=== PATIENT | female | born 1935 | race Caucasian/White ===

== ENCOUNTER → 2017-09-04 | Outpatient (REF) | LOC: ZLAB.WCH 18:02 | DX: Z01.89 Encounter for other specified special examinations (principal) ==

== ENCOUNTER → 2018-03-07 | Outpatient (REF) | LOC: ZLAB.WCH 16:11 | DX: Z01.89 Encounter for other specified special examinations (principal) ==

== ENCOUNTER → 2018-03-08 | Outpatient (REF) | LOC: ZLAB.WCH 16:04 | DX: Z01.89 Encounter for other specified special examinations (principal) ==

== ENCOUNTER → 2018-12-04 | Outpatient (REF) | LOC: ZLAB.WCH 16:06 | DX: Z01.89 Encounter for other specified special examinations (principal) ==

== ENCOUNTER → 2018-12-12 | Outpatient (REF) | LOC: ZLAB.WCH 17:23 | DX: Z01.89 Encounter for other specified special examinations (principal) ==

== ENCOUNTER 2020-11-25 14:54 | Observation (INO) | payer MEDICARE, OTHER ==
[~2020-11-25 14:54] MED LIST: ASPIRIN E.C. 8181 MG PO; DITROPAN 5MG TAB5 MG PO; LIPITOR20 MG PO; NITROSTAT0.4 MG/TAB SL; PREDNISONE10 MG PO
--- NOTE | 2020-11-25 15:00 | NUR ---
Patient arrived via EMS. Alert and oriented x 3. Denies pain at this time. Oriented to room. Dr. Ayala in to see patient. No further needs at this time.
[2020-11-25 17:35] VITALS: BP 165/66; PULSE 65; TEMP 98.3
--- NOTE | 2020-11-25 18:47 | NUR ---
Patient out by wheelchair. Educated patient on when to call provider and scheduling follow up appointments. INT to RAC discontinued, catheter tip intact. No further needs at this time.
== END 2020-11-25 18:47 | disposition home or self-care (01) ==
LOC: MEDICAL 14:54
PROVIDERS: ADMIT Hospitalist
DX: R07.89 Other chest pain (principal); N32.81 Overactive bladder; W01.0XXA Fall on same level from slipping, tripping and stumbling without subsequent striking against object, initial encounter; E78.5 Hyperlipidemia, unspecified
CPT/HCPCS: G0378

== ENCOUNTER 2021-09-07 16:55 | Inpatient (IN) | payer MEDICARE, OTHER ==
[~2021-09-07] VITALS: Ht 165.1 cm; Wt 53.3 kg
[2021-09-07 20:18] LABS: BASO # 0.1 K/mm3 (0.0-0.2); BASO % 0.7 % (0.0-2.0); EOS % 0.2 % (0.0-4.0); GRAN # 8.9 K/mm3 (1.4-6.5); GRAN % 86.4 % (42.2-75.2); HEMATOCRIT 40.6 % (37.0-47.0); HEMOGLOBIN 13.4 g/dl (12.5-16.0); LYMPH # 0.7 K/mm3 (1.2-3.4); MEAN CELL VOLUME 86 fl (80.0-100.0); MEAN CORPUSCULAR HEMOGLOBIN 28 pg (27-31); MEAN CORPUSCULAR HGB CONC 33 g/dl (33.0-37.0); MEAN PLATELET VOLUME 10.9 fl (7.4-10.4); MONO # 0.6 K/mm3 (0.1-0.6); MONO % 5.3 % (1.7-9.3); PLATELET COUNT 190 K/mm3 (130-400); RED BLOOD COUNT 4.74 M/mm3 (4.10-5.30); REDCELL DISTRIBUTION WIDTH-CV 13.2 % (11.5-14.5)
[2021-09-07 20:24] LABS: PROTHROMBIN TIME 10.9 SECONDS (9.7-12.8)
[2021-09-07 21:13] LABS: ALBUMIN 3.8 gm/dL (3.4-4.8); BILIRUBIN,TOTAL 0.8 mg/dL (0.2-1.2); CALCIUM 8.7 mg/dL (8.4-10.2); CREATININE, serum 0.82 mg/dL (0.57-1.11); POTASSIUM 3.9 mmol/L (3.5-4.5); TOTAL PROTEIN 6.3 gm/dL (6.2-8.1)
[2021-09-07 22:13] VITALS: BP 176/70; PULSE 90; TEMP 98
--- NOTE | 2021-09-07 22:18 | NUR ---
PT ADMITTED TO ROOM 343 PER BED. PT FORGETFUL AND YELLING OUT WHEN MOVED. ORIENTED TO PALCE AND TIME AND SELF. CALL LIGHT IN REACH. NPO STATUS. BED ALARM SET. RLE ROTATED AND SHORTEN ALITTLE. SCD'S PLACED ON LEGS.
--- NOTE | 2021-09-07 22:35 | NUR ---
UA OBTAINED AND SENT TO LAB
[2021-09-07 22:48] LABS: COLLECTION METHOD IN
[2021-09-07 23:05] LABS: MUCOUS Present (NOT PRESENT); PH 5 (5-8); SQUAMOUS EPITHELIAL None Seen /hpf (0-10); URINE APPEARANCE Hazy (CLEAR/HAZY); URINE BACTERIA Rare /hpf (NONE SEEN); URINE BILIRUBIN Negative (NEGATIVE); URINE BLOOD Negative (NEGATIVE); URINE COLOR Yellow (YELLOW); URINE GLUCOSE Negative (NEGATIVE); URINE KETONE 1+ (NEGATIVE); URINE LEUKOCYTE ESTERASE 1+ (NEGATIVE); URINE NITRATE Positive (NEGATIVE); URINE PROTEIN(semi-quant) 1+ (NEGATIVE); URINE RBC 20-50 /hpf (0-2)
--- NOTE | 2021-09-07 23:32 | NUR ---
UA RESULTS CALLED TO [facility]. NEW ORDERS.
[2021-09-08] VITALS (15 sets, daily range): BP systolic 133–176; BP diastolic 46–72; PULSE 73–102; TEMP 97.3–99
--- NOTE | 2021-09-08 00:09 | NUR ---
ROCEPHIN STARTED FOR UTI.
--- NOTE | 2021-09-08 04:03 | NUR ---
PT AWAKE AND CONFUSED. C/O RT HIP PAIN. SEE MAR FOR DILAUDID GIVEN.
--- NOTE | 2021-09-08 08:32 | NUR ---
Echo has been completed, awaiting pt to be cleared. Pt does state that she is having pain, but keeps grabbing her left leg. Right leg is externally rotated. PRN pain medication given. Not moving pt to assess back/bottom due to pt condition/pain level. Pt aware that she cannot have anything to eat or drink. Did give her some mouth swabs as she states she is having a hard time swallowing due to her throat being dry. Call light within reach, will continue to monitor
--- NOTE | 2021-09-08 09:46 | NUR ---
winery worker met with patient and patient's at bedside to discuss discharge plan. Patient lives at home with her Naveed ([phone]) and two grandchildren. Patient is independent with her ADL's and she does not utilize any DME to assist with mobility. Patient has no oxygen needs at home. PCP is Dr. Burciaga and she utilizes [facility] for medications with no cost difficulty. Patient's reports that they do have a DPOA-HC established listing their two son's as the agents. Spoke with patient and patient's about SNF need post surgery. Patient's verbalizes his first choice would be [facility] and the second [facility]. Referrals sent to both. [facility]
--- NOTE | 2021-09-08 10:07 | NUR ---
Called cardiology to get echo read so that pt can be cleared for surgery. Pt having increasing copmlaints of pain. Pain medication schedule/dose changed. Hospitalist has rounded, awaiting echo to be read
--- NOTE | 2021-09-08 10:28 | NUR ---
Initial visit; Patient thanked Retail Marketing Manager for looking in on her and offering prayer and God's blessings. Retail Marketing Manager will keep Mary in her prayers and will follow up while she is hospitalized.
--- NOTE | 2021-09-08 10:42 | NUR ---
Pt repositioned on to right side slightly using a pillow. Pt having complaints that her bottom is starting to hurt. Pt reported that this does feel a little better
--- NOTE | 2021-09-08 13:52 | NUR ---
Pt off the floor for surgery
--- NOTE | 2021-09-08 16:30 | NUR ---
Pt back recently from surgery. She is awake and alert. was at bedside when she arrived back from surgery. Pt does have bearhugger in place as she was shivering. VSS
--- NOTE | 2021-09-08 16:45 | NUR ---
Pt has been sleeping after getting settled from getting back from surgery. She does wake easily when spoken too, but is obviously tired. Pt states that her leg does not feel too bad right now. Francisco HEADLEY. SCDs on bilaterally and ice pack in place.
--- NOTE | 2021-09-08 19:22 | NUR ---
PT HAVING RT HIP PAIN. SEE MAR FOR DILAUDID GIVEN. REPOSITIONED FOR COMFORT. ICE PACK TO RT HIP. SCD'S ON.
--- NOTE | 2021-09-08 20:16 | NUR ---
pt resting now. no evidence of pain o2 sat 98% on 02 1nc
--- NOTE | 2021-09-08 21:37 | NUR ---
PT SLEEPING AT THIS TIME. NO DISTRESS. PAIN UNDER CONTROL.
[2021-09-09 03:09] VITALS: BP 110/49; PULSE 92; TEMP 98.2
[2021-09-09 06:25] LABS: BASO % 0.4 % (0.0-2.0); EOS # 0.1 K/mm3 (0.0-0.7); EOS % 1.1 % (0.0-4.0); GRAN % 73.1 % (42.2-75.2); LYMPH # 1.2 K/mm3 (1.2-3.4); LYMPH % 14.4 % (20.0-51.0); MEAN CELL VOLUME 90 fl (80.0-100.0); MEAN CORPUSCULAR HGB CONC 32 g/dl (33.0-37.0); MEAN PLATELET VOLUME 11.4 fl (7.4-10.4); MONO # 0.9 K/mm3 (0.1-0.6); MONO % 10.6 % (1.7-9.3); PLATELET COUNT 162 K/mm3 (130-400); RED BLOOD COUNT 3.54 M/mm3 (4.10-5.30); REDCELL DISTRIBUTION WIDTH-CV 13.7 % (11.5-14.5)
[2021-09-09 06:34] LABS: HEMATOCRIT 31.8 % (37.0-47.0); HEMOGLOBIN 10.2 g/dl (12.5-16.0); MEAN CORPUSCULAR HEMOGLOBIN 29 pg (27-31)
[2021-09-09 06:38] LABS: CALCIUM 8.5 mg/dL (8.4-10.2); CREATININE, serum 0.74 mg/dL (0.57-1.11); POTASSIUM 3.9 mmol/L (3.5-4.5)
[2021-09-09 07:44] VITALS: BP 127/67; PULSE 99; TEMP 98.1
--- NOTE | 2021-09-09 08:33 | NUR ---
Pt resting in bed and does have complaints of pain. She just isn't able to get comfortable. Pain medication given. Pt is confused, but is aware that she is and it very bothered by it. Pt keeps asking what is going on and why doesn't she know where she is and why she is here. Kept re-orienting pt. Assisted with setting up her tray for breakfast and encouraged her to at least eat her eggs. From addmission yesterday, it does not appear that the pt has a very nutritious diet at home.
--- NOTE | 2021-09-09 11:14 | NUR ---
Pt is very anxious. She is upset that she can't remember why she is here and what is going on. She did talk to her which helped for a short time, but she is back to being very anxious and crying. Pt is currently sitting up in the chair. Notified ABBY Kenney
[2021-09-09 11:53] VITALS: BP 123/66; PULSE 100; TEMP 99.1
--- NOTE | 2021-09-09 13:24 | NUR ---
Assisted pt back to bed as she was stating her bottom was bothering her. pt was a 2 assist using a walker. She did refuse anything for lunch. Gave her an ensure
[2021-09-09 15:31] VITALS: BP 118/49; PULSE 103; TEMP 100
--- NOTE | 2021-09-09 18:17 | NUR ---
Pt is very anxious when she does not have family with her. She continues to make confused statements and when corrected she gets very upset. Pt has poor PO intake. Ensure given
[2021-09-09 20:41] VITALS: BP 118/48; PULSE 99; TEMP 97.7
[2021-09-10 00:44] VITALS: BP 102/42; PULSE 97; TEMP 98.2
[2021-09-10 04:35] VITALS: BP 133/60; PULSE 91; TEMP 97.5
--- NOTE | 2021-09-10 05:18 | NUR ---
PT REMAIN CONFUSED THROUGHT THE NIGHT KEPT CALLING SEVERAL TIMES AT [facility]. PT REORIENTED. PAIN MEDICATION ADMINSTERED PER ORDERS
[2021-09-10 07:50] LABS: CALCIUM 8.8 mg/dL (8.4-10.2); CREATININE, serum 0.72 mg/dL (0.57-1.11); POTASSIUM 3.4 mmol/L (3.5-4.5)
[2021-09-10 07:55] LABS: BASO % 0.5 % (0.0-2.0); EOS # 0.2 K/mm3 (0.0-0.7); EOS % 1.9 % (0.0-4.0); GRAN # 5.8 K/mm3 (1.4-6.5); GRAN % 74.3 % (42.2-75.2); LYMPH % 12.8 % (20.0-51.0); MEAN CELL VOLUME 86 fl (80.0-100.0); MEAN CORPUSCULAR HGB CONC 33 g/dl (33.0-37.0); MEAN PLATELET VOLUME 11.4 fl (7.4-10.4); MONO # 0.8 K/mm3 (0.1-0.6); PLATELET COUNT 150 K/mm3 (130-400); RED BLOOD COUNT 3.28 M/mm3 (4.10-5.30); REDCELL DISTRIBUTION WIDTH-CV 13.3 % (11.5-14.5)
[2021-09-10 07:57] LABS: HEMATOCRIT 28.2 % (37.0-47.0); HEMOGLOBIN 9.4 g/dl (12.5-16.0); MEAN CORPUSCULAR HEMOGLOBIN 29 pg (27-31)
--- NOTE | 2021-09-10 08:30 | NUR ---
Pt very anxious and scared. She has to be reoriented multiple times and keeps asking why this is happening to her. Pt is aware that she is confused and keeps saying that she feels like she is going crazy. Assisted pt to the commode as she thought she needed to have a bowel movement. She was unsuccessful. Assisted her to the recliner for breakfast.
[2021-09-10 08:36] VITALS: BP 112/61; PULSE 67; TEMP 98.2
--- NOTE | 2021-09-10 11:00 | NUR ---
Pt has gotten up several times to the commode thinking she needed to have a bowel movement. Pt does do well with one assist with walker. Assisted pt back to bed for safety reasons. She keeps trying to get up from recliner. Again have had to reorient pt multiple times. Informed her that her Naveed would be here as soon as the weather cleared up. Pt again went on how she has been trying to tell family that she is going crazy, but states nobody believes her. She stated that she often has to go for walks to clear her head. Passed this information on to Dr Ibanez.
[2021-09-10 12:45] VITALS: BP 105/63; PULSE 96; TEMP 97.8
--- NOTE | 2021-09-10 13:00 | NUR ---
Pt is much more calm now as her , Naveed, is here. Hopoer catheter has been removed per order. Pt has poor PO intake, encouraging her to drink ensures so that she gets some protein. Pt in bed with bed alarm on
--- NOTE | 2021-09-10 15:34 | NUR ---
Spa Therapist spoke with Jessica, [facility] Director who advised she may be able to admit tomorrow depending on staffing. SW contacted [facility] and was advised they are full at this time. NESS then followed up with patient and her , Naveed to discuss additional referrals. They would like referrals sent to [facility], [facility], and [facility]. NESS faxed referrals.
[2021-09-10 16:00] VITALS: BP 121/54; PULSE 94; TEMP 97.9
--- NOTE | 2021-09-10 18:49 | NUR ---
Pt has been very upset for the past couple of hours. Someone has had to be with her almost the entire time. She is very upset thinking that her has hired myself to stay with her. She has stated that she has been telling her family that she doesn't feel safe at home and that she is afraid that something bad will happen such as starting a meal on the stove and forgetting about it. She now feels that Naveed, her , has hired myself without telling her. I am able to reorient her for a short time, but then she goes back to being upset and then makes no sense in her conversation. Each time pt was repositioned, calmed and then bed alarm on
[2021-09-10 20:26] VITALS: BP 123/53; PULSE 75; TEMP 98.2
--- NOTE | 2021-09-10 22:56 | NUR ---
PT HAS BEEN VERY CONFUSED. CONTSINUOUSLY TRYING TO GET OUT OF BED UNASSISTED. ORDER FOR HALDOL RECEIVED. HALDOL DID NOT SEEM TO SLOW HER ANXIOUS/RESTLESS BEHAVIOR AT ALL. PT ADMIN. PAIN MEDICATION FOR RLE WHICH DID SEEM TO HELP SOME. PT STILL VERY RESTLESS.
[2021-09-11 00:49] VITALS: BP 138/58; PULSE 95; TEMP 97.6
--- NOTE | 2021-09-11 05:03 | NUR ---
PT HAS GOTTEN APPROXIMATELY 1 HOUR OF SLEEP ALL TOTAL TONIGHT. PT MEDICATED WITH OXYCODONE AND TYLENOL FOR HIP PAIN. SHE IS OCCASIONALLY RESISTANT TO CARE BUT USUALLY IS COMPLIANT. GAIT UNSTEADY.
[2021-09-11 06:27] LABS: HEMATOCRIT 25.8 % (37.0-47.0); HEMOGLOBIN 8.7 g/dl (12.5-16.0); MEAN CELL VOLUME 86 fl (80.0-100.0); MEAN CORPUSCULAR HEMOGLOBIN 29 pg (27-31); MEAN CORPUSCULAR HGB CONC 34 g/dl (33.0-37.0); MEAN PLATELET VOLUME 11.6 fl (7.4-10.4); PLATELET COUNT 161 K/mm3 (130-400); REDCELL DISTRIBUTION WIDTH-CV 13.2 % (11.5-14.5)
[2021-09-11 06:28] LABS: CALCIUM 8.4 mg/dL (8.4-10.2); CREATININE, serum 0.71 mg/dL (0.57-1.11); MAGNESIUM 2.1 mg/dL (1.6-2.6); POTASSIUM 3.7 mmol/L (3.5-4.5)
--- NOTE | 2021-09-11 06:35 | NUR ---
starting to get out of bed, assisted up to bathroom and then back to bed and bedside shift report received from JASON Wu
[2021-09-11 07:41] VITALS: BP 112/48; PULSE 78; TEMP 97.5
--- NOTE | 2021-09-11 08:00 | NUR ---
resting in bed, CUSTOMER SERVICE LEADER in and assisted her with ordering breakfast
--- NOTE | 2021-09-11 08:25 | NUR ---
awake in bed, full assessment completed, see interventions for further info, assisted up to chair for breakfast, MATTRESS RENOVATOR in and assisting with care also, chair alarm on
--- NOTE | 2021-09-11 09:45 | NUR ---
physical therapy in and ambulated patient out to reddy and then back to room and into bed
--- NOTE | 2021-09-11 11:05 | NUR ---
sitting up in bed visiting ricky gonsales who is now at bedside
[2021-09-11 12:15] VITALS: BP 129/58; PULSE 46; TEMP 97.3
--- NOTE | 2021-09-11 12:30 | NUR ---
sat up in bed and had lunch and tolerated well, up to bathroom with assistance
--- NOTE | 2021-09-11 13:06 | NUR ---
Jessica with [facility] advises that they will be able to accept this patient tomorrow due to staffing shortages and changes needing to be made with the patient's medications.
--- NOTE | 2021-09-11 14:00 | NUR ---
up and in recliner, denies needs
[2021-09-11 16:45] VITALS: BP 136/60; PULSE 95; TEMP 97.4
--- NOTE | 2021-09-11 17:17 | NUR ---
sitting up in bed eating supper
--- NOTE | 2021-09-11 18:49 | NUR ---
bedside shift report given to JASON Wu
--- NOTE | 2021-09-11 22:18 | NUR ---
PT EVEN MORE DISORIENTED, ANXIOUS, RESTLESS TONIGHT. FREQUENTLY TRYING TO GET OUT OF BED TO GO FIND HER , GO DOWNSTAIRS, GO OUTSIDE ETC. PT VERY UNSTEADY ON FEET.
[2021-09-11 23:56] VITALS: BP 109/75; PULSE 104; TEMP 98
[2021-09-12 03:45] VITALS: BP 113/74; PULSE 84; TEMP 97.9
--- NOTE | 2021-09-12 04:40 | NUR ---
PT HAS NOT SLEPT ALL NIGHT. FREQUENTLY TRYING TO GET OUT OF BED. TYLENOL FOR PAIN. VERY DISORIENTED. MORE SO THAN THE PREVIOUS ADMINISTRATION MANAGER.
[2021-09-12 06:46] LABS: MEAN CELL VOLUME 88 fl (80.0-100.0); MEAN CORPUSCULAR HGB CONC 32 g/dl (33.0-37.0); MEAN PLATELET VOLUME 10.5 fl (7.4-10.4); PLATELET COUNT 243 K/mm3 (130-400); RED BLOOD COUNT 3.43 M/mm3 (4.10-5.30); REDCELL DISTRIBUTION WIDTH-CV 13.3 % (11.5-14.5)
[2021-09-12 06:52] LABS: HEMATOCRIT 30.3 % (37.0-47.0); HEMOGLOBIN 9.8 g/dl (12.5-16.0); MEAN CORPUSCULAR HEMOGLOBIN 29 pg (27-31)
[2021-09-12 08:00] VITALS: BP 136/58; PULSE 89; TEMP 97.7
--- NOTE | 2021-09-12 08:42 | NUR ---
Patient has awakened. Up to the bathroom, one assist with walker & gaitbelt. Breakfast ordered. Patient seems alert & mostly oriented at this time. States her birthday, knows she broke her hip. Right hip dressing CDI. Int. When discussing pain she reports minimal pain. She took her am medication without problems. Will monitor.
--- NOTE | 2021-09-12 09:27 | NUR ---
Follow up visit; Patient thanked Audio Visual Technician for looking in on her and offering God's blessings.
[2021-09-12 11:37] VITALS: BP 138/54; PULSE 90; TEMP 97.3
--- NOTE | 2021-09-12 12:51 | NUR ---
Patient up to the bathroom, one assist. She did well with lunch. She has been visiting with her spouse at bedside. Continue with high fall risk protocol.
--- NOTE | 2021-09-12 13:26 | NUR ---
Patient alarm off, trying to get out of bed independently. Reminded her to use call light. Patient assisted up to the chair and reoriented as needed.
--- NOTE | 2021-09-12 14:50 | NUR ---
Ingrid, [facility] Director advised they will not be able to accept today due to patient's behaviors overnight. Jessica will re-evaluate tomorrow. SW also faxed clinical updates to [facility], [facility], and [facility]. [facility] has declined referral.
[2021-09-12 16:00] VITALS: BP 131/67; PULSE 96; TEMP 97.7
--- NOTE | 2021-09-12 17:51 | NUR ---
Patient getting more confused. Continues to follow high risk protocol. She is sitting up eating dinner. Reoriented as needed.
[2021-09-12 19:18] VITALS: BP 138/59; PULSE 98; TEMP 98
--- NOTE | 2021-09-12 19:24 | NUR ---
Report to Leila. Patient repositioned in bed. Alarms on.
--- NOTE | 2021-09-13 03:12 | NUR ---
PATIENT ALERT BUT DISORIENTED. SOME AGITATION AND CONFUSION NOTED AT START OF SHIFT. SCHEDULED SEROQUEL AND PRN VENKATA GIVEN. PATIENT THEN RESTED COMFORTABLY UNTIL 0230. UPON AWAKENING WAS VERY DISORIENTED AGAIN. AFTER REORIENTATION AND RETURN TO BED PT TOOK PRN SEROQUEL AND PRN VENKATA. PATIENT NOW RESTING COMFORTABLY IN BED AGAIN.
[2021-09-13 04:00] VITALS: BP 115/78; PULSE 82; TEMP 97.7
--- NOTE | 2021-09-13 06:48 | NUR ---
awake and resting in bed, bedside shift report received from JASON Oviedo
--- NOTE | 2021-09-13 07:50 | NUR ---
HORSES OR MULES TEAMSTER in and assisted up to bathroom and then to recliner,
[2021-09-13 07:57] VITALS: BP 127/59; PULSE 93; TEMP 97.5
[2021-09-13] MEDS ORDERED: ASPI325T6 PO (08:32)
[2021-09-13] MEDS ORDERED: VITAMIN C500 MG PO (08:33)
[2021-09-13] MEDS ORDERED: TYLENOL 500MG500 MG PO (08:33)
[2021-09-13] MEDS ORDERED: OSCAL 500 TAB500 MG PO (08:33)
[2021-09-13] MEDS ORDERED: DUO-KAPS1 CAP PO (08:34)
[2021-09-13] MEDS ORDERED: MELATIN 3 MG-11 TAB PO (08:34)
[2021-09-13] MEDS ORDERED: ROXICODONE 55 MG/TAB PO (08:35)
[2021-09-13] MEDS ORDERED: SEROQUEL50 MG PO (08:38)
--- NOTE | 2021-09-13 08:42 | NUR ---
full assessment completed, see interventions for further info, Dr Mahoney and care team in to see patient
--- NOTE | 2021-09-13 10:00 | NUR ---
ambulating in reddy with physical therapy
--- NOTE | 2021-09-13 10:25 | NUR ---
resting in bed, denies needs
--- NOTE | 2021-09-13 10:35 | NUR ---
Fuse Maker spoke with Jessica, [facility] Director who advised they will accept patient today.
--- NOTE | 2021-09-13 11:11 | NUR ---
remains up in chair and appears to be sleeping, at bedside
[2021-09-13 11:52] VITALS: BP 116/65; PULSE 101; TEMP 97.3
--- NOTE | 2021-09-13 12:22 | NUR ---
transferred to [facility] status at this time
== END 2021-09-13 12:24 | DRG 481 ==
LOC: COL.ER 16:55 → SURG 17:45
PROVIDERS: Nurse Practitioner Family; Orthopaedic Surgery Sports Medicine; Physician Assistant; ADMIT Internal Medicine
PROC: 0QS636Z Reposition Right Upper Femur with Intramedullary Internal Fixation Device, Percutaneous Approach (ICD-10-PCS; principal; 2021-09-08 14:00)
DX: S72.141A Displaced intertrochanteric fracture of right femur, initial encounter for closed fracture (principal); N39.0 Urinary tract infection, site not specified; F03.91 Unspecified dementia, unspecified severity, with behavioral disturbance; F05 Delirium due to known physiological condition; I25.10 Atherosclerotic heart disease of native coronary artery without angina pectoris; I50.9 Heart failure, unspecified; I11.0 Hypertensive heart disease with heart failure; J44.9 Chronic obstructive pulmonary disease, unspecified; K21.9 Gastro-esophageal reflux disease without esophagitis; M35.00 Sjogren syndrome, unspecified; N32.81 Overactive bladder; Z66 Do not resuscitate; I08.3 Combined rheumatic disorders of mitral, aortic and tricuspid valves; F32.A Depression, unspecified; F41.9 Anxiety disorder, unspecified; E78.5 Hyperlipidemia, unspecified; B96.20 Unspecified Escherichia coli [E. coli] as the cause of diseases classified elsewhere; W18.30XA Fall on same level, unspecified, initial encounter; Y92.007 Garden or yard of unspecified non-institutional (private) residence as the place of occurrence of the external cause; Z86.73 Personal history of transient ischemic attack (TIA), and cerebral infarction without residual deficits; Z90.49 Acquired absence of other specified parts of digestive tract; Z90.710 Acquired absence of both cervix and uterus; Z87.891 Personal history of nicotine dependence
CPT/HCPCS: 99223-AI; 99231-AI; 99232-AI; 99239; A9284; C1713; J0690; J0696; J1170; J1630; J2270; J2704; J2795

== ENCOUNTER 2021-09-13 10:53 | Inpatient (IN) | payer MEDICARE, OTHER ==
[~2021-09-13] VITALS: Ht 167.6 cm; Wt 54.3 kg
[~2021-09-13 10:53] MED LIST changes: +ASPI325T6 PO; +DUO-KAPS1 CAP PO; +MELATIN 3 MG-11 TAB PO; +OSCAL 500 TAB500 MG PO; +ROXICODONE 55 MG/TAB PO; +SEROQUEL50 MG PO; +TYLENOL 500MG500 MG PO; +VITAMIN C500 MG PO
--- NOTE | 2021-09-13 12:25 | NUR ---
remains in room but is now an [facility] status
--- NOTE | 2021-09-13 13:21 | NUR ---
speech therapy in working with patient
--- NOTE | 2021-09-13 14:16 | NUR ---
physical therapy now in working with patient
--- NOTE | 2021-09-13 15:14 | NUR ---
occupational therapy now in working with patient
[2021-09-13 16:12] VITALS: BP 135/58; PULSE 108; TEMP 98.7
--- NOTE | 2021-09-13 17:00 | NUR ---
in bed and appears to be sleeping
[2021-09-13 18:08] VITALS: BP 135/58; PULSE 108; TEMP 98.7
--- NOTE | 2021-09-13 18:21 | NUR ---
awake resting in bed waiting for supper
--- NOTE | 2021-09-13 18:58 | NUR ---
in chair and is confused as to where her is and has forgotten that he was in earlier today, she did talk to him on the phone, reoriented her to him and that he will be in tomorrow, bedside shift report given to JASON Quach
--- NOTE | 2021-09-13 19:30 | NUR ---
Up out of bed setting off bed alarm. States she is ready to go to bed and would like her medications. Rating pain 8/10 to right hip-described as constant throbbing. Oxycodone given per dr order. HS meds given per request. Assessment complete. A&Ox4 but very forgetful. Denies shortness of breath/nausea. Dressing to right hip x3-CDI. Plan of care discussed for this shift to include Meds/calling for questions/concerns. Verbalizes understanding/denies needs. Call light in reach. Will monitor.
--- NOTE | 2021-09-13 22:26 | NUR ---
Called c/o pain to right hip-rating pain 10/10 on pain scale-described as constant throbbing. Received oxycodone at 1940-ordered q6h. Notified ABBY [id number]-[id number] orders received and initiated.
--- NOTE | 2021-09-14 01:00 | NUR ---
Resting eyes closed. No s/s of pain noted.
[2021-09-14 06:00] VITALS: BP 172/58; PULSE 86; TEMP 97.9
--- NOTE | 2021-09-14 06:12 | NUR ---
Had an uneventful night. Received oxycodone x2 for pain to right hip. Dressing remain CDI. Denies current needs. Call light in reach. Will monitor.
--- NOTE | 2021-09-14 07:27 | NUR ---
Report received from JASON Quach. Patient is resting comfortably in bed and states her pain is 5/10. Patient requested pain pill. Call light and bedside table are within reach. Will continue to monitor patient throughout shift.
--- NOTE | 2021-09-14 16:36 | NUR ---
Chief Of Planning met with patient to complete intake and to provide copy of team conference notes. Patient lives in [place] with her , Naveed (ph#[phone]) [address] Dr. Burciaga for primary care. [facility]. Patient states she has no DME at home but has used a walking stick. Patient states she has no concerns about returning home besides her two large dogs, who have tripped her up in the past. Patient states Naveed is working on fencing in their porch to put the dogs on when they can. SW to follow up with Naveed on scheduling a family meeting.
[2021-09-14 17:13] VITALS: BP 110/50; PULSE 101; TEMP 98.4
--- NOTE | 2021-09-14 22:50 | NUR ---
Patient assessed around 1939. Alert, oriented to self. Patient does have confusion, easily redirected, but very forgetful, but patient acknowledges that she has memory problems. Frequent reminders needed. High fall risk precautions in place. In bed with call light within reac. Bed alarm on.
[2021-09-15 05:09] VITALS: BP 127/51; PULSE 71; TEMP 97.8
--- NOTE | 2021-09-15 05:40 | NUR ---
Patient given PRN Seroquel and Roxicodone during the night at HS per orders. Continues to ambulate with one assist with walker. In bed with call light within reach. Bed alarm on.
--- NOTE | 2021-09-15 07:04 | NUR ---
Report received from JASON Bryant. Patient is sleeping in bed. Bed alarm in on and call light and bedside table are within reach. Will continue to monitor patient throughout shift.
--- NOTE | 2021-09-15 15:05 | NUR ---
TAKING OVER PATIENT'S CARE. RECEIVED REPORT FROM JASON RAZA.
--- NOTE | 2021-09-15 21:00 | NUR ---
PT CONFUSED AND ANXIOUS. HAVING PAIN TO RT HIP. SEE MAR FOR PAIN MEDS GIVEN. REASSURED PT ALL IS OK AND PT CALM NOW. TALKED TO ON PHONE. CALL LIGHT IN REACH. BED ALARM SET.
[2021-09-16 04:50] VITALS: BP 129/56; PULSE 71; TEMP 98
--- NOTE | 2021-09-16 05:51 | NUR ---
PT MORE ORIENTED THIS AM. ASSISTED TO BR. BACK TO BED. NO NEEDS AT THIS TIME.
--- NOTE | 2021-09-16 08:27 | NUR ---
PT SITTING UP IN RECLINER. MORNING MEDICATIONS GIVEN. SHIFT ASSESSMENT COMPLETED. REPORTS MILD PAIN TO LOWER BACK AND R HIP. EDUCATED PT ON PLAN FOR THE DAY, VERBALIZES UNDERSTANDING. WILL CONTINUE TO MONITOR.
--- NOTE | 2021-09-16 13:24 | NUR ---
Admission QIM scores were reviewed by the team. Code of 3 for sit to stand was determined by team discussion to be the most usual performance for this patient during the assessment period. Code of 3 chosen for walk 50 feet w/ 2 turns was determined by team discussion to be the most usual performance for this patient during the assessment period.--Jessica Sharma, PD
--- NOTE | 2021-09-16 14:15 | NUR ---
Respiratory Care Instructor met with patient to check in before the weekend. Patient states she has been worried about her , Naveed who was here to visit earlier today. Patient advised one of their dogs, Lizeth got out last night and Naveed fell trying to get the dog back inside. Patient states she knows Naveed is hurting. Patient went on to advise that things have been stressful because one of her sons, Daniel recently found out he had cancer. Her other son, Garry has been dealing with skin issues on his face. SW contacted Naveed to check in. Naveed advised he is doing just fine and managing okay at home. NESS scheduled family meeting for Sunday at 1000. Naveed states he will be here in person for the meeting.
[2021-09-16 18:02] VITALS: BP 130/62; PULSE 71; TEMP 98
--- NOTE | 2021-09-16 18:26 | NUR ---
PT WAS ANXIOUS THROUGHOUT MOST OF THE DAY DUE TO OUTSIDE FAMILY STRESSORS. WELL HAVING INTERMITTEN CONFUSION. WILL PASS ALONG IN REPORT TO ONCOMING RN.
--- NOTE | 2021-09-16 20:43 | NUR ---
PT VERY CONFUSED AND ANXIOUS. SEE MAR FOR SEROQUEL GIVEN.
[2021-09-17 04:48] VITALS: BP 159/53; PULSE 86; TEMP 97.9
--- NOTE | 2021-09-17 08:12 | NUR ---
PT ASSESSED. NO COMPLAINTS OF PAIN OR DYSPNEA. NO SIGNS OR SYMPTOMS OF DISTRESS. PT ASSISTED TO RESTROOM WITHOUT COMPLAICTION. CALL LIGHT WITHIN REACH.
[2021-09-17 16:12] VITALS: BP 151/69; PULSE 78; TEMP 97.4
--- NOTE | 2021-09-17 20:30 | NUR ---
BED ALARM SOUNDING. PT STANDING AT BED SIDE. HAS TO GO TO BR. PT CONFUSED ABOUT SITUATION AND WHY SHE CANT GO HOME. REASSURED PT WITH EMOTIONAL SUPPORT. SEE MAR FOR SEROQUEL GIVEN.
--- NOTE | 2021-09-17 22:49 | NUR ---
BED ALARM SOUNDING. PT UP AND AMB TO BR. HAD URGENCY. STILL PLEASANTLY CONFUSED. NEEDS CUSE FOR SAFETY. BACK TO BED. CALL LIGHT IN REACH. BED ALARM SET.
--- NOTE | 2021-09-18 05:22 | NUR ---
PT SLEEPING AT THIS TIME. NO EVIDENCE OF PAIN. UNEVENTFUL NIGHT EXCEPT IMPUSIVE BEHAVIORS AND ANXIOUSNESS EARLY IN SHIFT.
[2021-09-18 05:48] VITALS: BP 163/71; PULSE 85; TEMP 97.9
--- NOTE | 2021-09-18 10:22 | NUR ---
PT ASSESSED. NO COMPLAINTS OF PAIN OR DYSPNEA. PT CONTINUES TO BE CONFUSED AND RANTS IN HER ROOM ABOUT NO ONE BELIEVING HER. PT REQUESTS TO CALL SON AND . IS CURRENTLY AT BEDSIDE. NO SIGNS OR SYMPTOMS OF DISTRESS. CALL LIGHT WITHIN REACH
--- NOTE | 2021-09-18 14:35 | NUR ---
PT UPSET SHE HAS TRIED MULTIPLE TIMES TO CALL BUT HE IS NOT ANSWERING PHONE. PT ADVISED THAT HER HAD JUST LEFT AND WAS PROBABLY STILL DRIVING BUT PT STATES SHE DOESN'T REMEMBER HIM COMING UP AT ALL. WAS AT BESIDE FROM APPROIXMATELY 0930 UNTIL 1400 AND EVEN BROUGHT SOME SUPPLIES TO PT. ATTEMPTED REORIENTATION BUT WAS UNSUCCESSFUL. DISTRACTION PROVIDED PT AND I WENT FOR A WALK AROUND THE UNIT. PT REPORTS HAVING PAIN IN HER HIP AND IS GIVEN AN ICE PACK AND ASKED TO REST FOR A WHILE. CALL LIGHT WITHIN REACH
--- NOTE | 2021-09-18 15:00 | NUR ---
PT CONTINUOUSLY COAL AND ASH SUPERVISOR LIGHT AND ATTEMPTING TO CALL REPEATEDLY. THIS NURSE ATTEMPTS TO CALL FROM ROOM PHONE, BUT PHONE GOES TO VOICEMAIL. PT CONCERNED THAT HAS FALLEN OR IS OR "RAN OFF WITH ANOTHER WOMAN" AND IS BECOMING HYSTERICAL. NEPHEW CALLED ON ROOM PHONE AND IS ABLE TO COMFORT PT SOME BY INFORMING THAT HE WILL GO AND LOOK FOR HER AND GET BACK WITH HER. PT ATTEMPTING TO GET OUT OF BED AND THREATENS TO LEAVE AND JUST WALK HOME TO FIND HIM HERSELF.
--- NOTE | 2021-09-18 16:00 | NUR ---
PT RECIEVED CALL BACK FROM NEPHEW. SHE REPORTS THAT NEPHEW SAID THAT HE COULDN'T FIND THE AT HOME BUT WILL CONTINUE TO LOOK FOR HIM. PT BECOMES HYSTERICAL AND BEGINS TO FIGHT STAFF WHILE ATTEMPTING TO GET OUT OF BED. HOPPER FILLER AT BEDSIDE ATTEMPTING TO DEESCALATE PT. PT BECOMES SO DISTRAUGHT THAT SHE BEGINS TO HAVE TROUBLE BREATHING AND REPORTS "IF I TAKE A DEEP BREATH I WILL " WHEN ASKED TO TAKE DEEP BREATHS. PT CONTINUES TO TRY TO CALL , BUT PHONE CONTINUES TO GO DIRECTLY TO VOICEMAIL. PT THEN ATTEMPTS TO CALL "CHANEL" WHO REPORTS THAT SHE WILL ALSO TRY TO CONTACT THE AND GET BACK WITH THE PT. PT REFUSES TO CALM AND CONTINUES TO WORK HERSELF UP TO THE POINT OF CHOKING ON HER SECRETIONS FROM CRYING/YELLING SO MUCH. HOSPITALISTS NOTIFIED AND ORDERS 2 MG HALDOL IM. MEDICATION GIVEN WITH ASSISTANCE OF ANOTHER NURSE AND A TECH. PT CONTINUES TO TRY TO GET OUT OF BED WITHOUT WALKER AND REGARDLESS TO THE PAIN THAT SHE STILL REPORTS HAVING. PT EVENTUALLY ENCOURAGED TO LAY BACK AND RELAX AFTER MORE DEESCALTION TECHNIQUES. PT BREATHING STABILIZES AND PT IS ABLE TO RELAX TO SOME EXTENT.
--- NOTE | 2021-09-18 17:00 | NUR ---
PT CONTINUES TO BE AGITATED AND CONTINUES TO TRY TO GET OUT OF BED. COMPLAINS OF CONTINUED PAIN AND IS MEDICATED PER MAR. PT CONTINUES TO TRY TO CALL AND SONS BUT THEN GETS FRUSTRATED AND THROWS PHONE ONTO COUCH. PT UNABLE TO MAINTAIN CONVERSATION AND JUMPS FROM TOPIC TO TOPIC WITHOUT MAKING MUCH SENSE. SHE REPORTS "NOT HAVING GOTTEN OUT OF BED ALL DAY" REGARDLESS OF THE FACT THAT THIS NURSE TOOK PT ON 4 WALKS AND TECH TOOK PT ON AT LEAST 1 ADDTIONAL WALK. CONTINUED ATTEMPTS TO DEESCALATE PT ARE UNSUCESSFUL. "CHANEL" EVENTUALLY CALLS BACK AND REPORTS THAT THE PT'S IS FINE AND AT HOME. SHE GAVE AN ADITIONAL NUMBER FOR HIM AND ANSWERS THE PHONE WHEN CALLED. PT ABLE TO CALM SOMEWHAT AFTER SPEAING WITH HIM. BUT CONTINUES TO REPORT "NO ONES HELPING ME, I'VE NOT BEEN OUT OF THIS BED ALL DAY". PT EVENTUALLY DISTRACTED WITH FOOTBALL GAME AND IS ABLE TO BE CALM ENOUGH FOR THIS NURSE TO LEAVE. CALL LIGHT WITHIN REACH
--- NOTE | 2021-09-18 18:00 | NUR ---
PT CONTINUES TO CALL NURSING STAFF TO BEDSIDE CONTINUOUSLY. THIS TIME REPORTING THAT SHE "CANNOT BE EXPECTED TO JUST LIE HERE ALL NIGHT." PT STILL REPORTS PAIN AND IS MEDICATED PER MAR. PT THEN TAKEN ON ADDITIONAL WALK AROUND UNIT.ASSISTED TO THE RESTROOM. PT IS SUCESSFUL AT BOTH VOIDING AND HAVING BM. PT THEN TAKEN BACK TO BED AND ATTEMPTS TO MAKE COMFORTABLE ARE MADE. PT STATES SHE WOULD BE MORE COMFORTABLE ON HER SIDE, BUT WHEN ASKED TO POSITION HERSEL HOW SHE THINKS SHE WOULD BE MORE COMFORTABLE PT JUST FLOPS BACKWARD AND BECOMES STIFF. WHEN ASKED IF SHE IS COMFORTABLE LIKE THAT THE PT REPORTS NOT BEING COMFORTABLE. WHEN ASKED TO REPOSITION PT SITS UP IN BED AND SCOOTS THE VERY TOP OF THE BED WITH HER BOTTOM ON PILLOWS. PT INFORMED THAT IF SHE ATTEMPTS TO LAY DOWN THERE SHE WOULD HIT HER HEAD ON THE HEADBOARD AND WALL. PT BECOMES FRUSTRATED, SCOOTS BACK DOWN AND FLOPS INTO THE BED BECOMING STIFF AGAIN. THIS PROCESS REPEATS SEVERAL TIMES OVER THE NEXT 45 MINUTES WITH MULTIPLE DEESCALTION ATTEMPTS MADE. PT FINALLY BECOMES COOPERATIVE ENOUGH TO LAY ON HER SIDE AND ALLOW PILLOW PROPPING. PT FINALLY ABLE TO RELAX AND FALL ASLEEP WITH THE ASSISTANCE OF BACK/ HEAD MASSAGES. CALL LIGHT WITHIN REACH.
[2021-09-18 18:01] VITALS: BP 133/71; PULSE 102; TEMP 98.3
--- NOTE | 2021-09-18 19:19 | NUR ---
PT SLEEPING NOW. NO DISTRESS.
--- NOTE | 2021-09-18 22:23 | NUR ---
ASSISTED TO BR. VOIDING W/O DIFFICULTY. BACK TO BED. PT CALM AND COOPERATIVE AT THIS TIME. CALL LIGHT IN REACH. BED ALARM SET.
--- NOTE | 2021-09-19 01:19 | NUR ---
PT AWAKE. VERY ANXIOUS. CANT FIGURE WHATS GOING ON. SEE MAR FOR SEROQUEL GIVEN. REASSUSRED.
[2021-09-19 05:17] VITALS: BP 152/58; PULSE 78; TEMP 97.4
--- NOTE | 2021-09-19 05:53 | NUR ---
PT HAS BEEN RESTING WELL. AWAKES FOR VS. CALM BUT STILL VERY CONFUSED. RETURNS TO SLEEP.
--- NOTE | 2021-09-19 09:03 | NUR ---
PT ASSESSED. NO COMPLAINTS OF PAIN OR DYSPNEA. NO SIGNS OR SYMPTOMS OF DSITRESS. CALL LIGHT WITHIN REACH
--- NOTE | 2021-09-19 14:15 | NUR ---
Manager Willow and SW student check in with patient following the weekend. Patient voiced no concerns or questions at this time. SW reviewed date and time of upcoming family meeting.
[2021-09-19 15:50] VITALS: BP 125/59; PULSE 84; TEMP 98.3
--- NOTE | 2021-09-19 19:45 | NUR ---
pt's chair alarm going off, pt standing in front of chair, asks this RN "what did I do", explained why the alarm was is use, pt states she needs to use the restroom. assisted to restroom using walker. pt went and sat back in recliner. stating she can't wait to go home.
--- NOTE | 2021-09-19 20:15 | NUR ---
chair alarm going off again, pt walking to restroom, assisted with walker, afterwards she started saying she thought her had set this all up as a get away for her, becoming slightly confused about why she is here. RN reoriented pt about her hip, pt c/o pain in rt hip, prn seroquel and oxycodone given along with HS meds.
--- NOTE | 2021-09-20 00:01 | NUR ---
pt has slept well the last few hours, turned personal lines underwriter light and asked to use the restroom, RN assisted pt to restroom using walker, pt very alert, appropriate and oriented at this time, asks for a phone potato grader so she can charge her cell phone.
--- NOTE | 2021-09-20 03:00 | NUR ---
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 alert and oriented x4
[2021-09-20 05:33] VITALS: BP 146/41; PULSE 67; TEMP 97.4
--- NOTE | 2021-09-20 05:41 | NUR ---
pt using call light appropriately this shift, A&O x4, talking about going home soon, remembered that a meeting will be held tomorrow to discuss discharge. getting in and out of bed and using restroom with SBA
--- NOTE | 2021-09-20 07:00 | NUR ---
Report received from JASON Lehman. Patient is in bed sleep. Call light and bedside table are within reach. Will continue to monitor patient thoughout shift.
--- NOTE | 2021-09-20 09:08 | NUR ---
Follow-up; Patient thanked for bringing her a Rosary that she had inquired about earlier.
--- NOTE | 2021-09-20 09:30 | NUR ---
Patient's is at bedside.
--- NOTE | 2021-09-20 15:07 | NUR ---
Patient has completed all therapies for the day and is resting in bed. Patient is had a hard time getting into bed but is now resting in bed. Call light and bedside table are within reach.
[2021-09-20 15:34] VITALS: BP 123/43; PULSE 67; TEMP 98
--- NOTE | 2021-09-20 18:11 | NUR ---
Patient had a good day. She had very little confusion but would still forget to use call light at all times. This nurse had to keep reminding patient to use call light because it is a safety measure. Call light and bedside table are within reach.
--- NOTE | 2021-09-20 20:00 | NUR ---
Bedside shift report received, assumed care for shift stacker. Assessment complete. Alert but very confused/argumentative this evening. Rating pain 4/10 on pain scale-described as throbbing to right hip. Tylenol given per dr order. Denies nausea/shortness of breath. VS stable. Sitting up in chair watching TV. Denies current needs. Call light in reach. Will monitor.
--- NOTE | 2021-09-21 00:20 | NUR ---
Resting eyes closed. No s/s of pain noted. Call light in reach/bed alarm on. Will monitor.
[2021-09-21 05:29] VITALS: BP 166/60; PULSE 82; TEMP 98.4
--- NOTE | 2021-09-21 06:05 | NUR ---
Rested well later this shift. Was very restless at the beginning trying to leave and go home. Received tylenol x1 for pain control. VS remained stable. Denies current needs. Call light in reach. Will monitor.
--- NOTE | 2021-09-21 07:05 | NUR ---
Report received from JASON Quach. Patient is up and in bathroom. This nurse reminded patient to use call light when going back and forth to the bathroom for safety reasons. Patient continues to self ambulate and at times has to be reminded to use walker at all times. Patient is also c/o having to go to the bathroom every five minutes and stated she has had a BM each time. Alarms are on both bed and chair. Call light and bedside table are within reach. Will continue to monitor patient throughout shift.
--- NOTE | 2021-09-21 15:18 | NUR ---
Ophthalmic Asst and SW student participated in patient/family conference which included Dr. Jackman, IPR Director Jessica, PT/OT/ST, patient's Naveed, and patient's two sons Garry (ph#[phone]) and Sharif (ph#[phone]). Jessica opened the meeting and the team then reviewed patient's progress and answered questions from family. Patient's discharge date was set for 09/23/21 and patient is agreeable to this. The team is recommending a tub transfer bench, front wheeled walker, and home health for patient. Patient's , Naveed is also interested in Meals on Wheels. NESS and SW student followed up with patient later to provide copy of team conference notes. NESS also provided Medicare.gov list of Home Health agencies that serve [place] for patient to review and choose from. Patient is agreeable to have FWW ordered from [facility]. NESS then contacted [facility] and left a message for the staff that do Meals on Wheels.
[2021-09-21 17:16] VITALS: BP 150/65; PULSE 85; TEMP 98.1
--- NOTE | 2021-09-21 19:45 | NUR ---
PT AMB IN ROOM IMPULSIVELY. PT C/O RT HIP PAIN. ASSISTED PT TO BR. SEE MAR FOR PAIN MED GIVEN. ASSISTED BACK TO BED. CALL LIGHT IN REACH. BED ALARM SET.
--- NOTE | 2021-09-22 02:13 | NUR ---
PT SLEEPING. NO DISTRESS.
--- NOTE | 2021-09-22 05:20 | NUR ---
PT AWAKE AND CALM. ASSISTED TO BR WITH WALKER AFTER PT USED CALL LIGHT. PT UNABLE TO PASS STOOL. DULCOLAX SUPP GIVEN. HARD STOOL NOTED IN RECTUM. ASSISTED BACK TO BED. CALL LIGHT IN REACH. BED ALARM SET.
[2021-09-22 05:25] VITALS: BP 172/59; PULSE 70; TEMP 97.8
--- NOTE | 2021-09-22 06:40 | NUR ---
Report received from JASON Patiño. Patient is sleeping in bed. Call light and bedside table are within reach. Will continue to monitor patient throughout shift.
--- NOTE | 2021-09-22 07:25 | NUR ---
Patient c/o hurting while trying to have a BM. Patient has bright red blood on toilet paper. The night nurse reported she gave patient a suppository and colace but patient is crying d/t the pain. This nurse explained to patient it takes time for medication to work. Will continue to monitor patient.
--- NOTE | 2021-09-22 14:15 | NUR ---
Television Announcer faxed referral for front wheeled walker to [facility]. Michael from [facility] advised they would deliver the walker tomorrow.
--- NOTE | 2021-09-22 15:01 | NUR ---
Follow-up visit; Patient thanked for the Rosary she brought the other day and visits and prayers. Vice President Network Development offered Blessings.
--- NOTE | 2021-09-22 15:43 | NUR ---
NESS met with the patient to follow up on home health preference. The patient reports that her and her had not made a decision yet. She requested that SW contact her . NESS presented and read the IM form outloud to the patient. The patient verbalized understanding and gave NESS approval to sign the form on her behalf. NESS provided her with a copy. NESS then contacted the patient's , Naveed, to follow up on preference. Naveed did not have a preference on home health agency and was agreeable to use [facility]. NESS also provided Naveed with the phone number for Meals on Wheels. NESS attempted to contact Brianna at [facility]. NESS left her a voicemail. Awaiting screen.
[2021-09-22 17:45] VITALS: BP 144/50; PULSE 70; TEMP 97.6
--- NOTE | 2021-09-22 20:00 | NUR ---
PT AWAKE. CALM AND COOPERATIVE. ASSISTED TO BR. VOIDED AND HAD LOOSE BM. HEMMORRHOID OINTMENT APPLIED. PT HAPPY ABOUT GOING HOME TOMORROW. CALL LIGHT IN REACH. BED ALARM SET.
[2021-09-23 04:54] VITALS: BP 142/50; PULSE 83; TEMP 98.2
--- NOTE | 2021-09-23 04:56 | NUR ---
HAVING DIARRHEA. NOTIFIED OMERO RUSSO FOR IMODIUM.
--- NOTE | 2021-09-23 06:29 | NUR ---
see mar for imodium given for diarrhea
--- NOTE | 2021-09-23 08:04 | NUR ---
Pt assessment complete. Pt up to the restroom with loose stools x2 this am. Pt gets very anxious and flustered with this. Reassurance provided. Pt is oriented to person and place only. Questioning how she is going to go home and how her will care for her. Very discouraged this morning that her memory is not intact. Reports pain to her bottom from the stools she has been having. Pt sitting on the side of the bed eating breakfast at this time. Call light and bed alarm in place.
[2021-09-23] MEDS ORDERED: ASPI325T6 PO (08:47)
[2021-09-23] MEDS ORDERED: ZOLOFT 50MG50 MG PO (08:48)
[2021-09-23] MEDS ORDERED: SEROQUEL50 MG PO (08:48)
[2021-09-23] MEDS ORDERED: PREPARATION H GENERI RC (08:49)
[2021-09-23] MEDS ORDERED: BIOTENE MOIST44.3 ML PO (08:51)
[2021-09-23] MEDS ORDERED: ROXICODONE 55 MG/TAB PO (08:53)
[2021-09-23] MEDS ORDERED: COLACE 100100 MG/CAP PO (10:00)
--- NOTE | 2021-09-23 10:25 | NUR ---
NESS contacted Michael at [facility] to inquire when they would be delivering the FWW today. Michael reports that their goat driver will deliver the FWW probably around [phone]. NESS notified the patient's RN. The patient is to discharge back home with her today, 09/23, with home health services for group home/PT/OT/ST from [facility]. NESS faxed orders to Brianna at [facility]. No additional needs at this time.
--- NOTE | 2021-09-23 13:57 | NUR ---
Discharge instructions and paperwork reviewed with patient, her and her son. All questions answered at this time.
--- NOTE | 2021-09-23 14:06 | NUR ---
The patient's RN notified NESS that the patient's family would like to speak to NESS and that [facility] had not delivered the walker yet. NESS contacted Eddi at [facility]. Eddi reports that they got busy and asked if family could pick up operator the FWW from them on the way home. NESS met with the patient, her , and son and reviewed the discharge plan with them. The patient's son reports that they can pick up operator the FWW from [facility]. NESS notified [facility]. No additional needs at this time.
--- NOTE | 2021-09-23 14:10 | NUR ---
Pt wheeled out of facility by staff at this time.
--- NOTE | 2021-09-23 14:30 | NUR ---
Discharge QIM scores were reviewed by the team. Code of 6 chosen for toilet hygiene was determined by team discussion to be the most usual performance for this patient during the assessment period. Code of 6 chosen for toileting transfers was determined by team discussion to be the most usual performance for this patient during the assessment period. Code of 5 chosen for shower/bathe self was determined by team discussion to be the most usual performance before interventions for this patient during the assessment period. Code of 6 chosen for lower body dressing was determined by team discussion to be the most usual performance for this patient during the assessment period. Code of 6 chosen for putting on/taking off footwear was determined by team discussion to be the most usual performance for this patient during the assessment period. Code of 6 chosen for sit to lying was determined by team discussion to be the most usual performance before interventions for this patient during the assessment period. Code of 6 chosen for walk 10 feet was determined by team discussion to be the most usual performance for this patient during the assessment period. Code of 6 chosen for walk 50 feet w/ 2 turns was determined by team discussion to be the most usual performance for this patient during the assessment period. Code of 6 chosen for walk 150 feet was determined by team discussion to be the most usual performance for this patient during the assessment period.--PD Bulmaro
== END 2021-09-23 14:19 | disposition home health service (06) | DRG 560 ==
LOC: SURG 12:30
PROVIDERS: ADMIT Physical Medicine & Rehabilitation Sports Medicine
DX: S72.101D Unspecified trochanteric fracture of right femur, subsequent encounter for closed fracture with routine healing (principal); F05 Delirium due to known physiological condition; E44.1 Mild protein-calorie malnutrition; Z68.1 Body mass index [BMI] 19.9 or less, adult; R26.89 Other abnormalities of gait and mobility; F03.90 Unspecified dementia, unspecified severity, without behavioral disturbance, psychotic disturbance, mood disturbance, and anxiety; E78.5 Hyperlipidemia, unspecified; Z66 Do not resuscitate; I25.10 Atherosclerotic heart disease of native coronary artery without angina pectoris; I11.0 Hypertensive heart disease with heart failure; I50.9 Heart failure, unspecified; K21.9 Gastro-esophageal reflux disease without esophagitis; J44.9 Chronic obstructive pulmonary disease, unspecified; K58.1 Irritable bowel syndrome with constipation; M35.00 Sjogren syndrome, unspecified; F32.A Depression, unspecified; F41.9 Anxiety disorder, unspecified; N32.81 Overactive bladder; W01.0XXD Fall on same level from slipping, tripping and stumbling without subsequent striking against object, subsequent encounter; Y92.009 Unspecified place in unspecified non-institutional (private) residence as the place of occurrence of the external cause; Z79.82 Long term (current) use of aspirin; Z87.891 Personal history of nicotine dependence; Z86.73 Personal history of transient ischemic attack (TIA), and cerebral infarction without residual deficits; Z73.6 Limitation of activities due to disability; Z79.899 Other long term (current) drug therapy; Z79.891 Long term (current) use of opiate analgesic; K64.9 Unspecified hemorrhoids
CPT/HCPCS: 99223; 99231-AI; J1630

== ENCOUNTER 2022-01-22 20:11 | Inpatient (IN) | payer MEDICARE, OTHER ==
[~2022-01-22] VITALS: Ht 165.1 cm; Wt 52.6 kg
[~2022-01-22 20:11] MED LIST changes: +BIOTENE MOIST44.3 ML PO; +COLACE 100100 MG/CAP PO; +PREPARATION H GENERI RC; +ZOLOFT 50MG50 MG PO
[2022-01-22 22:45] LABS: COLLECTION METHOD IN
[2022-01-22 22:58] LABS: BASO # 0.1 K/mm3 (0.0-0.2); BASO % 0.7 % (0.0-2.0); EOS # 0.1 K/mm3 (0.0-0.7); EOS % 1.6 % (0.0-4.0); GRAN % 73.9 % (42.2-75.2); HEMATOCRIT 37.2 % (37.0-47.0); HEMOGLOBIN 12.1 g/dl (12.5-16.0); LYMPH # 1.1 K/mm3 (1.2-3.4); LYMPH % 15.5 % (20.0-51.0); MEAN CELL VOLUME 83 fl (80.0-100.0); MEAN CORPUSCULAR HEMOGLOBIN 27 pg (27-31); MEAN CORPUSCULAR HGB CONC 33 g/dl (33.0-37.0); MEAN PLATELET VOLUME 10.3 fl (7.4-10.4); MONO # 0.5 K/mm3 (0.1-0.6); PLATELET COUNT 199 K/mm3 (130-400); RED BLOOD COUNT 4.46 M/mm3 (4.10-5.30); REDCELL DISTRIBUTION WIDTH-CV 14.7 % (11.5-14.5)
[2022-01-22 23:04] LABS: PROTHROMBIN TIME 11.3 SECONDS (9.7-12.8)
[2022-01-22 23:04] LABS: MUCOUS Present (NOT PRESENT); PH 5 (5-8); SQUAMOUS EPITHELIAL 0-2 /hpf (0-10); URINE APPEARANCE Clear (CLEAR/HAZY); URINE BACTERIA None Seen /hpf (NONE SEEN); URINE BILIRUBIN Negative (NEGATIVE); URINE BLOOD Negative (NEGATIVE); URINE COLOR Yellow (YELLOW); URINE GLUCOSE Negative (NEGATIVE); URINE KETONE Negative (NEGATIVE); URINE LEUKOCYTE ESTERASE Trace (NEGATIVE); URINE NITRATE Negative (NEGATIVE); URINE PROTEIN(semi-quant) Negative (NEGATIVE); URINE RBC 0-2 /hpf (0-2); URINE UROBILINOGEN Negative (NEGATIVE)
[2022-01-22 23:16] LABS: ALBUMIN 3.4 gm/dL (3.4-4.8); BILIRUBIN,TOTAL 0.5 mg/dL (0.2-1.2); CREATININE, serum 0.99 mg/dL (0.57-1.11); POTASSIUM 3.7 mmol/L (3.5-4.5); TOTAL PROTEIN 6.2 gm/dL (6.2-8.1)
[2022-01-22 23:27] VITALS: BP 182/68; PULSE 61; TEMP 97.7
[2022-01-23] VITALS (12 sets, daily range): BP systolic 121–171; BP diastolic 44–80; PULSE 64–77; TEMP 97.7–98.9
--- NOTE | 2022-01-23 00:58 | NUR ---
GAVE VALIUM 2.5MG IV NOW ORDERED. SEE MAR.
--- NOTE | 2022-01-23 01:51 | NUR ---
[place]TR[place] SOUNDLY. NO EVIDENCE OF PAIN AT HIS TIME. CALL LIGHT IN REACH. BED ALARM SET.
--- NOTE | 2022-01-23 06:18 | NUR ---
PT RESTING W/O EVIDENCE OF PAIN. UNEVENTFUL NIGHT. MAINTAINED NPO STAT US.
--- NOTE | 2022-01-23 09:30 | NUR ---
HOSPITALIST AT BEDSIDE. PATIENT CLEARED FOR SURGERY, ORTHO NOTIFIED. SEE ORDERS.
--- NOTE | 2022-01-23 11:30 | NUR ---
PATIENT GOING DOWN TO OR VIA BED. CONSENT ON CHART. AT BEDSIDE. PATIENT OFF FLOOR.
--- NOTE | 2022-01-23 12:15 | NUR ---
SW met with patient to complete intake. Patient was confused and Naveed [phone] present and assisted with intake. [facility] states that live in [place]. Patient utilizes a walker and is independent with ADL's spouse says he stays near by when patient is taking a shower to ensure patient does not fall. [facility] states they do not have HH services at this time. PCP is Patrica and pharmacy is [facility]. Naveed provides that plan is for patient to return home if able to up on DC. NESS will continue to follow. DC plan: home?
--- NOTE | 2022-01-23 13:40 | NUR ---
PATIENT BACK IN ROOM 326 POST OP. VSS. NO COMPLAINTS. AT BEDSIDE IS GOING TO LET HER REST AND LEAVE FOR A WHILE.
--- NOTE | 2022-01-23 15:38 | NUR ---
PATIENT NOW AWAKE AND CRYING OUT IN PAIN. PATIENT APPEARS TO BE HAVING SPASMS IN LLE. GAVE PRN IV MORPHINE & VENKATA. ICE PACK TO LEFT HIP. PATIENT STILL CRYING WAITING FOR PAIN MEDS TO KICK IN.
--- NOTE | 2022-01-23 21:55 | NUR ---
PATIENT RESTING. AWAKENS TO SPEECH. HS MEDS PER EMAR. POOL TO DD WITH CLEAR YELLOW URINE OUTPUT. X3 SURG SITES TO L HIP CDI WITH GAUZE AND TEGADERM. PATIENT MILDLY CONFUSED WHEN AWAKENED BUT EASILY REORIENTED. IVF INFUSING INTO R FA IV WITHOUT ISSUE. DENIES ADDITIONAL PAIN CONTROL NEEDS AT THIS TIME AND QUICKLY RETURNS TO SLEEP.
[2022-01-24 00:29] VITALS: BP 122/74; PULSE 90; TEMP 98.6
[2022-01-24 04:54] VITALS: BP 107/78; PULSE 68; TEMP 97.9
[2022-01-24 06:36] LABS: BASO % 0.8 % (0.0-2.0); EOS # 0.2 K/mm3 (0.0-0.7); EOS % 3.5 % (0.0-4.0); GRAN # 3.4 K/mm3 (1.4-6.5); GRAN % 65.6 % (42.2-75.2); HEMOGLOBIN 10.4 g/dl (12.5-16.0); LYMPH % 18.4 % (20.0-51.0); MEAN CELL VOLUME 85 fl (80.0-100.0); MEAN CORPUSCULAR HEMOGLOBIN 27 pg (27-31); MEAN CORPUSCULAR HGB CONC 32 g/dl (33.0-37.0); MEAN PLATELET VOLUME 11.2 fl (7.4-10.4); MONO # 0.6 K/mm3 (0.1-0.6); MONO % 11.3 % (1.7-9.3); PLATELET COUNT 165 K/mm3 (130-400); RED BLOOD COUNT 3.81 M/mm3 (4.10-5.30); REDCELL DISTRIBUTION WIDTH-CV 14.8 % (11.5-14.5)
[2022-01-24 06:37] LABS: HEMATOCRIT 32.2 % (37.0-47.0)
[2022-01-24 06:44] LABS: CALCIUM 8.6 mg/dL (8.4-10.2); CREATININE, serum 0.75 mg/dL (0.57-1.11); POTASSIUM 3.5 mmol/L (3.5-4.5)
[2022-01-24 08:00] VITALS: BP 141/48; PULSE 71; TEMP 97.7
--- NOTE | 2022-01-24 08:00 | NUR ---
PATIENT IS ALERT BUT CONFUSED AT BASELINE. HX OF DEMENTIA AND IS FREQUENTLY FORGETFUL. PATIENT ASKING WHY HER LEG AND BACK OF HER LEFT HAND HURT, PATIENT HAS BEEN REMINDED SEVERAL TIMES ABOUT THE FALL. VSS. DENIES PAIN AT REST. PATIENT ONLY C/O OCCATIONAL LLE SPASMS/CRAMPS. GAVE PRN FLEXERIL. BREAKFAST TRAY AT BEDSIDE. AM MEDS GIVEN. HEAD TO TOE ASSESSMENT COMPLETE. TEDS & SCD'S TO BLE. POSITIVE PEDAL PULSES TO BLE. POOL TO DD WITH MOD AMOUNTS OF CLEAR YELLOW URINE. IV FLUIDS INFUSING VIA PUMP PER ORDERS. NO OTHER NEEDS AT THIS TIME. CALL LIGHT IN REACH. BED ALARM ON.
--- NOTE | 2022-01-24 09:37 | NUR ---
Initial visit; Patient and her thanked Motor Scooter Mechanic for visiting and offering encouragement, empathy for Mary and her son who is undergoing chemotherapy at this time. Motor Scooter Mechanic offered prayer for both of them. Mary requested that Motor Scooter Mechanic come back and pray for her again tomorow. Motor Scooter Mechanic will happily do so.
[2022-01-24 12:00] VITALS: BP 117/42; PULSE 68; TEMP 98.2
--- NOTE | 2022-01-24 12:00 | NUR ---
PATIENT WAS FOUND TO HAVE PULLED IV SITE OUT WHILE SITTING UP IN BED MESSING WITH HER IV SITE AND POOL. IV CATH TIP INTACT AND SITE COVERED WITH GAUZE & COBAN
--- NOTE | 2022-01-24 12:56 | NUR ---
Learning Coordinator contacted patient's , Naveed to review discharge plan as patient is not oriented at this time. SW reviewed PT recommendation for IPR, which patient has been to before and Naveed is agreeable to this. NESS also reviewed SNF options as a second preference and Naveed chose [facility] as a second preference. NESS contacted ILYA Lopez Director and gave referral. NESS then contacted Francisco Javier at [facility] and faxed referral. Discharge Plan: Post acute rehab. 1)[facility] or 2)[facility] SNF
--- NOTE | 2022-01-24 13:00 | NUR ---
PATIENT KEEPS TRYING TO GET OUT OF BEDSIDE CHAIR SETTING OFF ALARM. NURSING STAFF ATTEMPTED TO RE-ORIENT PATIENT X3 WITH NO SUCCESS. PATIENT ASSISTED BACK INTO BED TO COMFORT. PILLOW UNDER LEFT KNEE AND ICE PACK INPLACE. GAVE PRN ROXICODONE AND SCHEDULED TYLENOL. BED ALARM ON. PATIENT RESTING WITH CALL LIGHT IN REACH.
--- NOTE | 2022-01-24 14:30 | NUR ---
CALLED PHARMACY FOR UPDATE MED LIST. AWAITING FAX
[2022-01-24 15:34] VITALS: BP 124/57; PULSE 80; TEMP 97.8
[2022-01-24] MEDS ORDERED: ARICEPT 5MG PO (15:43)
[2022-01-24] MEDS ORDERED: ZOLOFT 100MG100 MG PO (15:43)
--- NOTE | 2022-01-24 20:00 | NUR ---
ASSESSMENT COMPLETE. PT. IS LYING IN BED TRYING TO CALL . PT. WAS ASSISTED AND SHE LEFT A MESSAGE. PT. STATES FEELING CONFUSED. PT. IS ALERT AND CAN ANSWER ORIENTATION QUESTIONS BUT REMAINS FORGETFUL. POOL IS DEPENDANT TO GRAVITY. NO IV/INT. DRESSING IS CDI TO LEFT HIP. CALL LIGHT IN REACH. WILL CONTINUE TO MONITOR. NO FURTHER NEEDS.
[2022-01-24 20:24] VITALS: BP 126/55; PULSE 92; TEMP 98.8
[2022-01-25 00:16] VITALS: BP 148/79; PULSE 85; TEMP 98.5
[2022-01-25 04:21] VITALS: BP 162/60; PULSE 84; TEMP 97.9
--- NOTE | 2022-01-25 05:28 | NUR ---
PT. HAD AN UNEVENTFUL NIGHT. PT. WOKE ONCE OR TWICE IN THE NIGHT CONFUSED BUT WAS ABLE TO BE REORIENTED AND GO BACK TO SLEEP. NO FURTHER NEEDS.
[2022-01-25 05:54] LABS: BASO # 0.1 K/mm3 (0.0-0.2); EOS # 0.2 K/mm3 (0.0-0.7); EOS % 3.6 % (0.0-4.0); GRAN # 3.4 K/mm3 (1.4-6.5); GRAN % 70.5 % (42.2-75.2); LYMPH # 0.7 K/mm3 (1.2-3.4); LYMPH % 15.3 % (20.0-51.0); MEAN CELL VOLUME 88 fl (80.0-100.0); MEAN CORPUSCULAR HEMOGLOBIN 27 pg (27-31); MEAN CORPUSCULAR HGB CONC 31 g/dl (33.0-37.0); MEAN PLATELET VOLUME 11.2 fl (7.4-10.4); MONO # 0.5 K/mm3 (0.1-0.6); MONO % 9.4 % (1.7-9.3); PLATELET COUNT 163 K/mm3 (130-400); RED BLOOD COUNT 3.65 M/mm3 (4.10-5.30); REDCELL DISTRIBUTION WIDTH-CV 14.8 % (11.5-14.5)
[2022-01-25 06:06] LABS: CREATININE, serum 0.67 mg/dL (0.57-1.11); POTASSIUM 3.4 mmol/L (3.5-4.5)
[2022-01-25 07:34] VITALS: BP 153/61; PULSE 81; TEMP 97.6
--- NOTE | 2022-01-25 08:00 | NUR ---
PATIENT IS ALERT, ORIENTED TO PERSON BUT IS FREQUENTLY FORGETFUL/CONFUSED. PATIENT HAS HX OF DEMENTIA AND IS AT BASELINE. VERY PLEASANT LADY. VSS. C/O PAIN IN LLE WITH ACTIVITY. GAVE PRN ROXICODONE, ONE TAB WITH AM MEDS BEFORE THERAPY. LLE DRESSING X3 ARE CD&I WITH GAUZE & TEGA. POSITIVE PEDAL PULSES TO BLE. TEDS & SCD'S TO BLE. PATIENT SITTING UP IN BED WITH BREAKFAST TRAY. NOTED AM K+ OF 3.4, STARTED ON K+ PROTOCOL, SEE MAR. NO C/O N/V. NO IV SITE. POOL TO CONSTANTIN. PT/OT CONSULTED. HEAD TO TOE ASSESSMENT COMPLETE. NO OTHER NEEDS. CALL LIGHT IN REACH. BED ALARM ON.
[2022-01-25] MEDS ORDERED: TYLENOL 325MG325 MG PO (09:09)
[2022-01-25] MEDS ORDERED: ROXICODONE 55 MG/TAB PO (09:10)
[2022-01-25] MEDS ORDERED: NORVASC 5MG5 MG/TAB PO (09:11)
--- NOTE | 2022-01-25 13:02 | NUR ---
Jessica, [facility] Director advised they cannot accept referral at this time due to patient's cognition. NESS met with patient and patient's , Naveed to review the above information. NESS advised that [facility] can accept and they are agreeable to this. NESS reviewed IM form with Naveed as patient is having confusion during this conversation and talking about her dogs visiting her hospital room. Naveed verbalized understanding of patient's rights and signed IM form. NESS placed form in patient's chart then provided copy to patient. NESS contacted [facility] and set transport time for 1400. NESS also faxed discharge orders and negative covid results. [facility]
[2022-01-25 13:56] VITALS: BP 122/61; PULSE 76; TEMP 97.7
--- NOTE | 2022-01-25 15:00 | NUR ---
[facility] NOW HERE TO PICK PATIENT UP. GAVE INFO PACKET TO [facility]. CALLED REPORT TO [facility] NURSE. PATIENT IS DRESSED, PACKED AND DISCHARGED WITH FAMILY AT BEDSIDE. PATIENT ESCORTED OUT VIA WC AND GONE FROM OUR FACILITY.
== END 2022-01-25 15:00 | DRG 482 ==
LOC: COL.ER 20:11 → SURG 21:54
PROVIDERS: Orthopaedic Surgery; Physician Assistant; Student in an Organized Health Care Education/Training Program; ADMIT Student in an Organized Health Care Education/Training Program
PROC: 0QH734Z Insertion of Internal Fixation Device into Left Upper Femur, Percutaneous Approach (ICD-10-PCS; principal; 2022-01-23 11:30)
DX: S72.142A Displaced intertrochanteric fracture of left femur, initial encounter for closed fracture (principal); E78.5 Hyperlipidemia, unspecified; I25.10 Atherosclerotic heart disease of native coronary artery without angina pectoris; J44.9 Chronic obstructive pulmonary disease, unspecified; I50.9 Heart failure, unspecified; I11.0 Hypertensive heart disease with heart failure; M35.00 Sjogren syndrome, unspecified; F32.A Depression, unspecified; F41.9 Anxiety disorder, unspecified; Z66 Do not resuscitate; F03.90 Unspecified dementia, unspecified severity, without behavioral disturbance, psychotic disturbance, mood disturbance, and anxiety; K21.9 Gastro-esophageal reflux disease without esophagitis; D64.9 Anemia, unspecified; E87.6 Hypokalemia; K58.9 Irritable bowel syndrome, unspecified; N32.81 Overactive bladder; W01.0XXA Fall on same level from slipping, tripping and stumbling without subsequent striking against object, initial encounter; Y93.89 Activity, other specified; Y92.003 Bedroom of unspecified non-institutional (private) residence as the place of occurrence of the external cause; Z86.73 Personal history of transient ischemic attack (TIA), and cerebral infarction without residual deficits; Z79.82 Long term (current) use of aspirin; Z20.822 Contact with and (suspected) exposure to COVID-19
CPT/HCPCS: 99223-AI; 99233-AI; 99239; A9284; C1713; J0690; J1100; J2270; J2405; J2704; J2795; J3010; J3360; J7121

== ENCOUNTER 2022-02-03 08:12 | Emergency (ER) | payer MEDICARE, OTHER ==
[~2022-02-03] VITALS: Ht 167.6 cm; Wt 50.0 kg
[~2022-02-03 08:12] MED LIST changes: +ARICEPT 5MG PO; +NORVASC 5MG5 MG/TAB PO; +TYLENOL 325MG325 MG PO; +ZOLOFT 100MG100 MG PO
[2022-02-03 08:34] VITALS: TEMP 97.8
--- NOTE | 2022-02-03 09:05 | NUR ---
Patient arrived to ED after suffering from a fall this morning at [facility]. RN asks if i can assist with getting ahold of the patient's . Phone call made to Naveed's cell phone x2 will no answer and [employer] mailbox is full. Phone call made to home phone [phone] and it was not in service. Patient become anxious that we are unable to get ahold of him stating that she knew he was having trouble with his phone yesterday but this is not like him. Phone call made to the [facility] office to make contact with her . Responding officer contacts me stating that he was unable to make contact. RN notified this SW that patient's arrives to this ER.
[2022-02-03 09:12] LABS: BASO % 0.5 % (0.0-2.0); EOS # 0.2 K/mm3 (0.0-0.7); GRAN % 69.9 % (42.2-75.2); HEMOGLOBIN 10.9 g/dl (12.5-16.0); LYMPH % 16.7 % (20.0-51.0); MEAN CELL VOLUME 84 fl (80.0-100.0); MEAN CORPUSCULAR HEMOGLOBIN 27 pg (27-31); MEAN CORPUSCULAR HGB CONC 33 g/dl (33.0-37.0); MEAN PLATELET VOLUME 8.9 fl (7.4-10.4); MONO # 0.5 K/mm3 (0.1-0.6); MONO % 8.8 % (1.7-9.3); PLATELET COUNT 442 K/mm3 (130-400); RED BLOOD COUNT 3.98 M/mm3 (4.10-5.30)
[2022-02-03 09:13] LABS: HEMATOCRIT 33.5 % (37.0-47.0)
[2022-02-03 09:23] LABS: PROTHROMBIN TIME 11.3 SECONDS (9.7-12.8)
[2022-02-03 09:25] LABS: PARTIAL THROMBOPLASTIN TIME 26.5 SECONDS (26.0-37.0)
[2022-02-03 09:28] LABS: CALCIUM 9.2 mg/dL (8.4-10.2); CREATININE, serum 0.72 mg/dL (0.57-1.11); POTASSIUM 3.5 mmol/L (3.5-4.5)
[2022-02-03 09:55] VITALS: BP 104/67; PULSE 97
== END 2022-02-03 09:55 | disposition home or self-care (01) ==
LOC: COL.ER 08:12
PROVIDERS: Emergency Medicine
DX: M25.552 Pain in left hip (principal); Z96.642 Presence of left artificial hip joint
CPT/HCPCS: J3010